=== PATIENT | female | born 1985 | race Caucasian/White ===

== ENCOUNTER 2018-06-08 09:54 | Emergency (ER) | payer MEDICAID, OTHER ==
[~2018-06-08] VITALS: Ht 167.6 cm; Wt 125.0 kg
[2018-06-08] MEDS ORDERED: LAMO10TA PO ×2 (10:01→13:38)
[2018-06-08] MEDS ORDERED: BOTO10VL IM (10:01)
[2018-06-08] MEDS ORDERED: GABA-845 PO (10:01)
[2018-06-08] MEDS ORDERED: KETO10TAB PO ×2 (10:02→13:38)
[2018-06-08 10:23] LABS: BASO % 0.3 % (0.0-1.0); EOS # 0.2 10^3/uL (0.0-0.50); HEMATOCRIT 44.6 % (36.0-47.0); HEMOGLOBIN 14.8 g/dl (12.0-15.5); LYMPH # 2.7 10^3/uL (1.5-4.5); LYMPH % 25.8 % (24.0-44.0); MEAN CORPUSCULAR HEMOGLOBIN 29.6 pg (27.0-33.0); MEAN CORPUSCULAR HGB CONC 33.2 g/dl (32.0-36.5); MEAN CORPUSCULAR VOLUME 89.2 fl (80.0-96.0); MONO # 0.6 10^3/uL (0.0-0.8); MONO % 5.4 % (0.0-5.0); NEUTROPHILS # 6.9 10^3/uL (1.8-7.7); NEUTROPHILS % 66.1 % (36.0-66.0); PLATELET COUNT, AUTOMATED 323 10^3/uL (150-450); WHITE BLOOD COUNT 10.4 10^3/uL (4.0-10.0)
[2018-06-08] MEDS ORDERED: NS 1,000 ML IV ONE (10:45)
[2018-06-08] MEDS ORDERED: KETOROLAC 30 MG/ML VIAL (J1885) IV ONE (10:45)
[2018-06-08] MEDS ORDERED: ONDANSETRON 4MG/2ML VIAL (J2405) IV ONE (10:45)
[2018-06-08 11:01] LABS: ALBUMIN 3.8 GM/DL (3.2-5.2); ALT/SGPT 22 U/L (12-78); AMYLASE 44 U/L (25-115); BILIRUBIN,DIRECT < 0.1 MG/DL (0.0-0.2); BILIRUBIN,TOTAL 0.5 MG/DL (0.2-1.0); BLOOD UREA NITROGEN 17 MG/DL (7-18); CARBON DIOXIDE LEVEL 22 MEQ/L (21-32); CHLORIDE LEVEL 105 MEQ/L (98-107); CREATININE FOR GFR 0.63 MG/DL (0.55-1.30); GLOMERULAR FILTRATION RATE > 60.0 (>60); GLUCOSE, FASTING 89 MG/DL (70-100); LIPASE 195 U/L (73-393); POTASSIUM SERUM 4.8 MEQ/L (3.5-5.1); SODIUM LEVEL 139 MEQ/L (136-145); TOTAL PROTEIN 7.8 GM/DL (6.4-8.2)
[2018-06-08 11:08] LABS: HCG, SERUM QUALITATIVE NEGATIVE (NEGATIVE)
[2018-06-08] MEDS ORDERED: ISOVUE-370 76% 100ML VIAL (Q9967) As Ordered ONE (12:15)
[2018-06-08] MEDS ORDERED: MORPHINE 4 MG/ML 1ML VIAL/SYRINGE (J2270) IV ONE (13:00)
[2018-06-08] MEDS ORDERED: GABA-843 PO (13:38)
[2018-06-08] MEDS ORDERED: MIRA3350 PO (13:39)
[2018-06-08] MEDS ORDERED: ACETAMINOPHEN 325 MG TAB PO ONE (13:45)
[2018-06-08] MEDS ORDERED: lamoTRIgine 100MG TAB PO ONE (13:45)
--- NOTE | 2018-06-08 13:45 | REP ---
CT abdomen pelvis with IV but without oral contrast: Tree: Right lower quadrant pain. Leukocytosis. Comparison CT study is from March 13, 2007. CT findings: Preliminary digital avian keeper radiograph is unremarkable. There are clips in the gallbladder fossa. The lung bases are clear on axial CT images. The liver and the spleen are normal in size homogeneous in texture. No adrenal or pancreatic lesion is seen. The kidneys enhance symmetrically and are morphologically intact. A normal appendix is visible in the right lower quadrant. No abdominal wall defect is seen. No uterine or ovarian abnormality is seen. Urinary bladder is intact. Bone window settings show no significant bony abnormality. Small and large intestinal bowel loops are unremarkable. Impression: Unremarkable CT study of the abdomen and pelvis. The patient status post cholecystectomy. Normal appendix is seen. Electronically Signed by Taras Silva MD 06/08/2018 08:13 P
[2018-06-08 14:08] VITALS: BP 118/72
== END 2018-06-08 14:23 | disposition home or self-care (01) ==
LOC: M ED 09:54
DX: R10.31 Right lower quadrant pain (principal); G43.909 Migraine, unspecified, not intractable, without status migrainosus; K59.00 Constipation, unspecified
CPT/HCPCS: 36415; 74177; 80048; 80076; 81001; 82150; 83690; 84703; 85025; 96361; 96374; 96375; 99284; J1885; J2270; J2405; Q9967

== ENCOUNTER 2018-06-28 09:08 | Emergency (ER) | payer MEDICAID ==
[~2018-06-28] VITALS: Ht 167.6 cm; Wt 122.7 kg
[~2018-06-28 09:08] MED LIST: BOTO10VL IM; GABA-843 PO; GABA-845 PO; KETO10TAB PO; LAMO10TA PO; MIRA3350 PO
[2018-06-28] MEDS ORDERED: KETOROLAC 60 MG/2 ML VIAL (J1885) IM ONE (09:30)
[2018-06-28] MEDS ORDERED: ONDANSETRON 4 MG ORAL DISINTEGRATING TAB (Q0162 PER 1MG) PO ONE (09:30)
[2018-06-28 10:18] LABS: APPEARANCE, URINE CLEAR (CLEAR); BACTERIA, URINE AUTO NEGATIVE (NEGATIVE); BILIRUBIN, URINE AUTO NEGATIVE (NEGATIVE); BLOOD, URINE BLOOD 1+ (NEGATIVE); COLOR, URINE YELLOW (YELLOW); GLUCOSE, URINE (UA) AUTO NEGATIVE (NEGATIVE); KETONE, URINE AUTO NEGATIVE (NEGATIVE); LEUKOCYTE ESTERASE, URINE AUTO NEGATIVE (NEGATIVE); MUCUS, URINE SMALL (NEGATIVE); NITRITE, URINE AUTO NEGATIVE (NEGATIVE); PROTEIN, URINE AUTO NEGATIVE (NEGATIVE); RBC, URINE AUTO 2 /HPF (0-3); SPECIFIC GRAVITY URINE AUTO 1.026 (1.002-1.035); SQUAMOUS EPITHELIAL CELL UR AU 3 /HPF (0-6); UROBILINOGEN, URINE AUTO 0.2 mg/dL (0.0-2.0); WBC, URINE AUTO 2 /HPF (0-3)
--- NOTE | 2018-06-28 10:36 | REP ---
Clinical: Right lower quadrant pain. Technique: Transabdominal pelvic ultrasound followed by transvaginal examination for better evaluation of the endometrium and adnexa with color Doppler evaluation of the ovaries. Findings: Anteverted mildly enlarged uterus measures 10.0 x 5.5 x 6.8 cm. Endometrial complex measures 9.3 mm thickness. No discrete uterine or endometrial abnormalities appreciated. The bilateral ovaries are normal in appearance and vascularity without evidence for torsion. Right ovary measures 1.9 x 1.6 x 1.4 cm; RI 0.50. Left ovary measures 2.3 x 1.9 x 2.8 cm; RI 0.51. No pelvic free fluid or adnexal mass lesion. Bladder is partially distended and currently measures 4.4 x 1.5 x 3.7 cm. Impression: No obvious acute pelvic pathology. No evidence for ovarian torsion. No free fluid. Electronically Signed by Lauri Fraser MD 06/28/2018 10:27 A
[2018-06-28] MEDS ORDERED: ACETAMINOPHEN 325 MG TAB PO ONE (10:45)
[2018-06-28] MEDS ORDERED: PERCOCET 5MG/325MG TAB PO ONE (11:30)
[2018-06-28 11:37] LABS: CHLAMYDIA DNA AMPLIFICATION NEGATIVE (NEGATIVE); GC DNA AMPLIFICATION NEGATIVE (NEGATIVE)
[2018-06-28] MEDS ORDERED: oxyCODONE 5MG TAB PO ONE (11:45)
[2018-06-28] MEDS ORDERED: ENDO10TA8 PO (12:33)
[2018-06-28] MEDS ORDERED: IBUP80TA PO (12:33)
[2018-06-28 12:34] VITALS: BP 137/65
[2018-07-02] MEDS ORDERED: ACET30TAB PO (09:48)
[2018-07-08] MEDS ORDERED: OXYC1TAB23 PO (13:16)
[2018-07-09] MEDS ORDERED: PERCOCET PO (09:10)
== END 2018-06-28 12:40 | disposition home or self-care (01) ==
LOC: M ED 09:08
DX: R10.31 Right lower quadrant pain (principal); R51 Headache; F41.9 Anxiety disorder, unspecified; Z72.0 Tobacco use; J30.1 Allergic rhinitis due to pollen; J30.81 Allergic rhinitis due to animal (cat) (dog) hair and dander; Z79.899 Other long term (current) drug therapy; Z88.0 Allergy status to penicillin
CPT/HCPCS: 76830; 76856; 81001; 81025; 87210; 87491; 87591; 93976; 96372; 99284; J1885; Q0162

== ENCOUNTER 2018-07-19 13:31 | Emergency (ER) | payer MEDICAID ==
[~2018-07-19] VITALS: Ht 167.6 cm; Wt 113.6 kg
[~2018-07-19 13:31] MED LIST changes: +ACET30TAB PO; +ENDO10TA8 PO; +IBUP80TA PO; +OXYC1TAB23 PO; +PERCOCET PO
--- NOTE | 2018-07-19 14:11 | REP ---
CT of the brain without IV contrast: Comparison is 04/13/2015. There is no subdural or epidural hematoma. There is no intracranial hemorrhage otherwise. There is no edema, mass effect or midline shift. The ventricles are normal size and midline. The cortical stripe is unremarkable. The visualized paranasal sinuses and mastoid air cells are clear. Impression: Negative CT study of the brain. There is no interval change. Electronically Signed by Antonio Mcallister MD 07/19/2018 02:03 P
--- NOTE | 2018-07-19 14:13 | REP ---
Right shoulder three views: There are no comparisons. Mineralization is normal. There is an unusual horizontal linear density in the surgical neck of the humerus on one-view. This is nonspecific but could represent a cortical fracture. Correlation with clinical point tenderness is recommended. Consider CT for confirmation. No other fracture is identified. There is no dislocation. There are no calcifications or foreign bodies. Impression: Questionable cortical fracture as described. Consider CT follow-up. Electronically Signed by Antonio Mcallister MD 07/19/2018 02:05 P
--- NOTE | 2018-07-19 14:18 | REP ---
Maxillofacial CT: There is no nasal bone fracture. There is no orbit fracture. The ocular globes and lenses are unremarkable. There is no zygoma fracture. No mandible fracture. The paranasal sinuses and mastoid air cells are clear. 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 Impression: No facial bone fracture is identified. Electronically Signed by Antonio Mcallister MD 07/19/2018 02:11 P
[2018-07-19] MEDS ORDERED: NORCO, ANEXSIA 5/325MG TABLET (HYDROcodone/ACETAMINOPHEN) PO ONE (14:45)
--- NOTE | 2018-07-19 14:51 | REP ---
CT of the right shoulder without IV contrast: Comparison is a plain film study earlier today. There is no femoral head or neck fracture by CT. The finding on the plain film study is likely artifact. Mineralization is normal. No calcifications. The glenohumeral and acromioclavicular joints are unremarkable. Impression: Negative CT of the right shoulder. There is no fracture or dislocation. Electronically Signed by Antonio Mcallister MD 07/19/2018 02:42 P
[2018-07-19 15:10] VITALS: BP 136/76
[2018-07-29] MEDS ORDERED: PERCOCET PO (09:39)
== END 2018-07-19 15:20 | disposition home or self-care (01) ==
LOC: M ED 13:31
DX: S09.90XA Unspecified injury of head, initial encounter (principal); S49.91XA Unspecified injury of right shoulder and upper arm, initial encounter; Y04.8XXA Assault by other bodily force, initial encounter; Y07.01 Husband, perpetrator of maltreatment and neglect; Y92.018 Other place in single-family (private) house as the place of occurrence of the external cause; F33.9 Major depressive disorder, recurrent, unspecified; F41.9 Anxiety disorder, unspecified; Z88.0 Allergy status to penicillin; J30.81 Allergic rhinitis due to animal (cat) (dog) hair and dander; Z79.899 Other long term (current) drug therapy; F17.210 Nicotine dependence, cigarettes, uncomplicated

== ENCOUNTER → 2018-07-21 | Outpatient (CLI) | payer MEDICAID ==
[~2018-07-21] MED LIST changes: +IBUP1TAB7 PO
== END ==
LOC: M SMT 09:38
PROVIDERS: ATTEND Obstetrics & Gynecology
DX: Z80.3 Family history of malignant neoplasm of breast (principal); Z80.41 Family history of malignant neoplasm of ovary

== ENCOUNTER 2018-07-22 08:04 | Day surgery (SDC) | payer MEDICAID ==
[~2018-07-22] VITALS: Ht 167.6 cm; Wt 133.8 kg
[~2018-07-22 08:04] MED LIST changes: -IBUP1TAB7 PO; +LIDOCAINE 1% MDV 20ML VIAL SQ PRN
[2018-07-22] MEDS ORDERED: ONDANSETRON 4MG/2ML VIAL (J2405) As Ordered ONE (08:09)
[2018-07-22] MEDS ORDERED: ROCURONIUM BROMIDE 50 MG/5 ML VIAL As Ordered ONE (08:09)
[2018-07-22] MEDS ORDERED: PROPOFOL 200 MG/20 ML VIAL As Ordered ONE (08:09)
[2018-07-22] MEDS ORDERED: dexameTHASONE 4 MG/ML 1ML VIAL (J1100) As Ordered ONE (08:09)
[2018-07-22] MEDS ORDERED: LIDOCAINE 2% INJ 100 MG/5 ML SDV (FOR ANES.) As Ordered ONE (08:09)
[2018-07-22] MEDS ORDERED: fentaNYL 250 MCG/5 ML INJECTION (J3010) As Ordered ONE (08:10)
[2018-07-22] MEDS ORDERED: MIDAZOLAM INJ 2 MG/2 ML VIAL (J2250) As Ordered ONE (08:11)
[2018-07-22 08:33] LABS: HEMATOCRIT 44.6 % (36.0-47.0); HEMOGLOBIN 14.6 g/dl (12.0-15.5); MEAN CORPUSCULAR HEMOGLOBIN 29.4 pg (27.0-33.0); MEAN CORPUSCULAR HGB CONC 32.7 g/dl (32.0-36.5); MEAN CORPUSCULAR VOLUME 89.7 fl (80.0-96.0); PLATELET COUNT, AUTOMATED 297 10^3/uL (150-450); RED BLOOD COUNT 4.97 10^6/uL (4.00-5.40); WHITE BLOOD COUNT 12.7 10^3/uL (4.0-10.0)
[2018-07-22] MEDS ORDERED: PERCOCET PO (08:45)
[2018-07-22] MEDS ORDERED: IBUP1TAB7 PO (08:47)
[2018-07-22] MEDS ORDERED: BUPIVACAINE HCL 0.25% 30 ML VIAL As Ordered ONE (08:51)
[2018-07-22 09:01] LABS: HCG, SERUM QUALITATIVE NEGATIVE (NEGATIVE)
[2018-07-22] MEDS ORDERED: METOCLOPRAMIDE INJ 10MG/2ML VIAL (J2765) As Ordered ONE (09:26)
[2018-07-22] MEDS ORDERED: HYDROmorphone HCL 2 MG/ML 1ML VIAL (J1170) As Ordered ONE (09:45)
[2018-07-22] MEDS ORDERED: GLYCOPYRROLATE INJ 0.2 MG/ML 2 ML VIAL As Ordered ONE (09:45)
[2018-07-22] MEDS ORDERED: KETOROLAC 60 MG/2 ML VIAL (J1885) As Ordered ONE (09:45)
[2018-07-22] MEDS ORDERED: NEOSTIGMINE 10 MG/10 ML VIAL (J2710) As Ordered ONE (09:45)
[2018-07-22] MEDS ORDERED: ONDANSETRON 4MG/2ML VIAL (J2405) IV PRN (10:45)
[2018-07-22] MEDS ORDERED: PERCOCET 5MG/325MG TAB PO PRN (10:45)
[2018-07-22] MEDS ORDERED: LR 1,000 ML IV ONE (10:45)
[2018-07-22] MEDS ORDERED: fentaNYL 100 MCG/2 ML INJECTION (J3010) IV PRN (10:45)
[2018-07-22] MEDS ORDERED: LR 1,000 ML IV SCH (10:45)
[2018-07-22] MEDS ORDERED: NORCO, ANEXSIA 5/325MG TABLET (HYDROcodone/ACETAMINOPHEN) As Ordered ONE (10:48)
[2018-07-22] MEDS ORDERED: NORCO, ANEXSIA 5/325MG TABLET (HYDROcodone/ACETAMINOPHEN) PO PRN (11:15)
--- NOTE | 2018-07-22 11:41 | RO ---
DATE OF PROCEDURE: 07/22/2018 PREOPERATIVE DIAGNOSES: 1. Ovarian cysts. 2. Chronic pelvic pain. POSTOPERATIVE DIAGNOSES: 1. Chronic pelvic pain. 2. Endometriosis. OPERATION PERFORMED: Diagnostic operative laparoscopy with left salpingo-oophorectomy. SURGEON: Ela Cook MD PHYSICIAN SPECIALIST: Kashmir Ernandez DO ANESTHESIA: General endotracheal anesthesia. ESTIMATED BLOOD LOSS: 5 mL. INTRAVENOUS FLUIDS: 900 mL of Lactated Ringer's solution. URINE OUTPUT: 300 mL. PREOPERATIVE ANTIBIOTICS: None. INFECTION CLASSIFICATION: 1 OPERATIVE FINDINGS: Patient had normal appearing ovaries bilaterally. Normal appearing uterus. Area of endometriosis on the pelvic sidewall. Secondary to its location proximal to the left ureter, a decision was made not to remove it. SPECIMENS: Left ovary and fallopian tube. DESCRIPTION OF OPERATION: After informed consent was obtained and written consent was reviewed, the patient as brought to the operating room where general endotracheal anesthesia was obtained. She was then placed in lithotomy position, was prepped and draped in a normal sterile fashion. A time out in the operating room was then performed identifying the patient, procedure to be performed as well as drug allergies. A bivalve speculum was then placed revealing the cervix. Anterior lip of the cervix was grasped with a single tooth tenaculum. The uter was then sounded to 8 cm. A Hulka tenaculum was then advanced through the cervical os for a means to manipulate the uterus. Single tooth tenaculum and speculum was then removed. Wright catheter was then placed and set to gravity. Gloves were changed and attention was turned to the patient's abdomen where 0.25% Marcaine was infused into the umbilical region. This areas was then incised and an 11 mm trocar and sleeve was advanced through this incision. The laparoscope was then replaced revealing intra-abdominal placement. A pneumoperitoneum was then obtained with CO2 gas. The abdomen was then surveyed with the above noted findings. Two additional port sites were placed on each side of the umbilicus. These incisions were infused with 0.25% Marcaine and the incision was made in each one of these areas and 5 mm trocar and sleeve was advanced through each one of these incisions under direct visualization. Next, the left fallopian tube was placed on traction. Using the Harmonic MARGO scalpel device, the infundibulopelvic ligament was then cauterized and ligated. Further dissection was made along the mesosalpinx and included the fallopian tube, and the fallopian tube along with the utero-ovarian ligament was cauterized and ligated with hemostasis noted. The specimen was then placed in the Endo Catch bag and this was removed through the port site. Surgical sites were inspected and noted to be hemostatic. The pneumoperitoneum was then released. Trocars were removed as well as instruments. The fascia of the umbilical port site was closed with #0 Vicryl. All three incisions were closed with #4-0 Monocryl and dressed with DERMABOND. The Hulka tenaculum was removed. The tenaculum sites were noted to be hemostatic. Wright catheter was removed and the patient was then taken out of lithotomy position, was awakened from general anesthesia and taken to the recovery room in stable condition. Counts were correct. Dr. Ernandez, my surgical training specialist, played an essential role during the operation. He assisted with port placement, tissue identification and retraction, removal of the specimen as well as wound closure.
[2018-07-22 12:00] VITALS: BP 128/73
--- NOTE | 2018-07-22 12:37 | RO ---
DATE OF OPERATION: 07/22/2018 PREOPERATIVE DIAGNOSIS: Chronic pelvic pain. POSTOPERATIVE DIAGNOSIS: Chronic pelvic pain. PROCEDURE PERFORMED: Diagnostic operative laparoscopy with a right oophorectomy. SURGEON: Ela Cook MD TALENT DEVELOPMENT CONSULTANT: Ramsey Mcwilliams MD ANESTHESIA: General endotracheal anesthesia. ESTIMATED BLOOD LOSS: 5 mL. INTRAVENOUS FLUIDS: 900 mL of lactated Ringer solution. URINE OUTPUT: 300 mL. PREOPERATIVE ANTIBIOTICS: None. INFECTION CLASSIFICATION: #1. SPECIMEN: Right ovary. OPERATIVE FINDINGS: The patient with adhered right ovary. There was a left ovarian cyst which was drained operatively. DESCRIPTION OF OPERATION: After informed consent was obtained and written consent was reviewed, the patient was brought to the operating room, where general endotracheal anesthesia was obtained. She was then placed in the lithotomy position and was prepped and draped in a normal sterile fashion. A time-out in the operating room was then performed identifying the patient, the procedure to be performed, as well as drug allergies. A bivalved speculum was placed, revealing the cervix. The anterior lip of the cervix was grasped with a single-tooth tenaculum. The uterus was then sounded to 8 cm. A Hulka tenaculum was then advanced through the cervical os for a means to manipulate the uterus. The speculum and single-tooth tenaculum were then removed. A Wright catheter was then placed and set to gravity. Gloves were changed. Attention was turned to the patient's abdomen, where 0.25% Marcaine was infused in umbilical region. This area was incised, and an 11-mm trocar and sleeve was advanced through this incision. The laparoscope was then replaced, revealing intra-abdominal placement. The pelvis and abdomen were then surveyed with the above-noted findings. Next, two additional ports sites were placed in each side of the umbilicus. These areas were infused with 0.25% Marcaine. 5-mm trocars and sleeves were advanced through each one of these incisions under direct visualization. Next, a right infundibulopelvic ligament was then cauterized and ligated using harmonic scalpel device. The right ovary was peeled off of the right pelvic sidewall using Harmonic John scalpel device and along with some blunt dissection. This was performed with identification of the right ureter, making sure that I was well away from the right ureter. The utero-ovarian ligament was then cauterized and ligated using the Harmonic John scalpel device. The specimen was then placed in an Endo Catch bag and was removed from the umbilical port site. Surgical sites were noted to be hemostatic. The right ovarian cyst was drained. The surgical sites were hemostatic. The abdomen was then suctioned. The instruments were then removed from the patient's abdomen. The pneumoperitoneum was then released. The fascia at the port site was closed with 0 Vicryl and the skin of all three port sites were closed with 4-0 Monocryl and were dressed with Dermabond. Prior to removing the patient from the lithotomy position, Hulka tenaculum was removed. The tenaculum site was noted to be hemostatic. Wright catheter was removed. The patient was then taken out of the lithotomy position, was awakened from general anesthesia, and taken to recovery in stable condition. Counts were correct. Dr. Mcwilliams, my surgical nurse practitioner, played an essential role during the surgery. He assisted with port placement, tissue identification and retraction, the right oophorectomy, as well as removal of specimen and wound closure.
[2018-07-22] MEDS ORDERED: KETOROLAC 30 MG/ML VIAL (J1885) IV SCH (16:00)
[2018-07-29] MEDS ORDERED: PERCOCET PO (09:39)
== END 2018-07-22 12:05 | disposition home or self-care (01) ==
LOC: M SDC 08:04
PROVIDERS: ATTEND Obstetrics & Gynecology
DX: R10.2 Pelvic and perineal pain (principal); N83.202 Unspecified ovarian cyst, left side; G43.909 Migraine, unspecified, not intractable, without status migrainosus; D64.9 Anemia, unspecified; F41.9 Anxiety disorder, unspecified; F32.9 Major depressive disorder, single episode, unspecified; R06.83 Snoring; F12.90 Cannabis use, unspecified, uncomplicated; E66.9 Obesity, unspecified; Z68.42 Body mass index [BMI] 45.0-49.9, adult; Z88.0 Allergy status to penicillin; Z88.1 Allergy status to other antibiotic agents; Z91.09 Other allergy status, other than to drugs and biological substances; Z79.899 Other long term (current) drug therapy; Z72.0 Tobacco use
CPT/HCPCS: 36415; 49322; 58661; 84703; 85027; 86850; 86900; 86901; 88305; J1100; J1170; J1885; J2250; J2405; J2710; J2765; J3010

== ENCOUNTER 2018-07-28 08:00 | Emergency (ER) | payer MEDICAID, OTHER ==
[~2018-07-28] VITALS: Ht 167.6 cm; Wt 125.0 kg
[~2018-07-28 08:00] MED LIST changes: +IBUP1TAB7 PO; -LIDOCAINE 1% MDV 20ML VIAL SQ PRN
[2018-07-28 08:57] LABS: BASO % 0.3 % (0.0-1.0); EOS # 0.2 10^3/uL (0.0-0.50); EOS % 2.2 % (0.0-3.0); HEMATOCRIT 42.5 % (36.0-47.0); HEMOGLOBIN 14.1 g/dl (12.0-15.5); LYMPH # 2.4 10^3/uL (1.5-4.5); LYMPH % 23.8 % (24.0-44.0); MEAN CORPUSCULAR HEMOGLOBIN 29.5 pg (27.0-33.0); MEAN CORPUSCULAR HGB CONC 33.2 g/dl (32.0-36.5); MEAN CORPUSCULAR VOLUME 88.9 fl (80.0-96.0); MONO # 0.7 10^3/uL (0.0-0.8); MONO % 7.2 % (0.0-5.0); NEUTROPHILS # 6.7 10^3/uL (1.8-7.7); NEUTROPHILS % 66.1 % (36.0-66.0); PLATELET COUNT, AUTOMATED 300 10^3/uL (150-450); RED BLOOD COUNT 4.78 10^6/uL (4.00-5.40); WHITE BLOOD COUNT 10.1 10^3/uL (4.0-10.0)
[2018-07-28] MEDS ORDERED: MORPHINE 2 MG/ML 1ML SYRINGE (J2270) IV ONE (09:15)
[2018-07-28] MEDS ORDERED: NS 1,000 ML IV ONE (09:15)
--- NOTE | 2018-07-28 09:59 | REP ---
PELVIC ULTRASOUND: Real-time sonographic evaluation of the pelvis performed utilizing transabdominal and endovaginal technique. Bladder measures 4.3 x 3.8 cm. Uterus measures 10.9 x 5.4 x 4.9 cm. Endometrial thickness is 10 mm with no endometrial fluid collection. Patient has had a right oophorectomy approximately 6 days ago. Left ovary is normal in size and echotexture, measuring 2.7 x 1.9 x 2.5 cm, with no torsion, resistive index 0.58. There is no adnexal mass or free fluid. Nabothian cysts are seen in the region of the cervix. IMPRESSION: No endometrial fluid collection or free fluid. No left ovary torsion. Electronically Signed by Antonio Rdz MD 07/29/2018 09:06 A
[2018-07-28 11:10] LABS: ALBUMIN 3.7 GM/DL (3.2-5.2); ALT/SGPT 28 U/L (12-78); BILIRUBIN,DIRECT 0.1 MG/DL (0.0-0.2); BILIRUBIN,TOTAL 0.4 MG/DL (0.2-1.0); BLOOD UREA NITROGEN 14 MG/DL (7-18); CALCIUM LEVEL 8.8 MG/DL (8.5-10.1); CARBON DIOXIDE LEVEL 23 MEQ/L (21-32); CHLORIDE LEVEL 106 MEQ/L (98-107); CREATININE FOR GFR 0.66 MG/DL (0.55-1.30); GLOMERULAR FILTRATION RATE > 60.0 (>60); GLUCOSE, FASTING 99 MG/DL (70-100); LIPASE 201 U/L (73-393); POTASSIUM SERUM 4.5 MEQ/L (3.5-5.1); SODIUM LEVEL 139 MEQ/L (136-145); TOTAL PROTEIN 7.2 GM/DL (6.4-8.2)
[2018-07-28 11:15] LABS: HCG, SERUM QUALITATIVE NEGATIVE (NEGATIVE)
[2018-07-28 11:24] VITALS: BP 126/75
[2018-07-29] MEDS ORDERED: PERCOCET PO (09:39)
== END 2018-07-28 11:25 | disposition home or self-care (01) ==
LOC: M ED 08:00
DX: N93.9 Abnormal uterine and vaginal bleeding, unspecified (principal); R51 Headache; F41.9 Anxiety disorder, unspecified; F32.9 Major depressive disorder, single episode, unspecified; J30.2 Other seasonal allergic rhinitis; J30.81 Allergic rhinitis due to animal (cat) (dog) hair and dander; Z72.0 Tobacco use; Z90.721 Acquired absence of ovaries, unilateral; Z79.899 Other long term (current) drug therapy; Z88.0 Allergy status to penicillin
CPT/HCPCS: 76830; 76856; 80048; 80076; 81001; 83690; 84703; 85025; 93976; 96374; 99284; J2270

== ENCOUNTER → 2018-08-24 | Outpatient (REF) | payer OTHER | LOC: M SFHCPLAZ 12:46 | PROVIDERS: ATTEND Family Medicine | DX: Z68.41 Body mass index [BMI] 40.0-44.9, adult (principal); R53.83 Other fatigue ==

== ENCOUNTER → 2018-08-24 | Outpatient (CLI) | payer OTHER ==
[~2018-08-24] MED LIST changes: +ACET-716 PO; -ACET30TAB PO; +LAMO100T80 PO; -LAMO10TA PO
== END ==
LOC: M LRY 18:37
PROVIDERS: ATTEND Student in an Organized Health Care Education/Training Program
DX: R53.83 Other fatigue (principal); Z68.41 Body mass index [BMI] 40.0-44.9, adult

== ENCOUNTER 2018-09-08 15:34 | Emergency (ER) | payer OTHER ==
[~2018-09-08] VITALS: Ht 167.6 cm; Wt 136.4 kg
[2018-09-08] MEDS ORDERED: ONDANSETRON 4MG/2ML VIAL (J2405) IV ONE (16:15)
[2018-09-08] MEDS ORDERED: NS 1,000 ML IV ONE (16:15)
[2018-09-08] MEDS ORDERED: PANTOPRAZOLE 40MG INJ (PROTONIX) (C9113) IV ONE (16:15)
[2018-09-08 17:00] LABS: BASO % 0.3 % (0.0-1.0); EOS # 0.1 10^3/uL (0.0-0.50); EOS % 0.9 % (0.0-3.0); HEMATOCRIT 46.5 % (36.0-47.0); HEMOGLOBIN 15.3 g/dl (12.0-15.5); LYMPH # 2.8 10^3/uL (1.5-4.5); LYMPH % 19.8 % (24.0-44.0); MEAN CORPUSCULAR HEMOGLOBIN 29.7 pg (27.0-33.0); MEAN CORPUSCULAR HGB CONC 32.9 g/dl (32.0-36.5); MEAN CORPUSCULAR VOLUME 90.3 fl (80.0-96.0); MONO # 0.8 10^3/uL (0.0-0.8); MONO % 5.3 % (0.0-5.0); NEUTROPHILS # 10.4 10^3/uL (1.8-7.7); NEUTROPHILS % 73.3 % (36.0-66.0); PLATELET COUNT, AUTOMATED 331 10^3/uL (150-450); RED BLOOD COUNT 5.15 10^6/uL (4.00-5.40); WHITE BLOOD COUNT 14.1 10^3/uL (4.0-10.0)
[2018-09-08 17:19] LABS: HCG, SERUM QUALITATIVE NEGATIVE (NEGATIVE)
[2018-09-08 17:27] LABS: ALBUMIN 4.2 GM/DL (3.2-5.2); ALT/SGPT 23 U/L (12-78); BILIRUBIN,DIRECT 0.2 MG/DL (0.0-0.2); BILIRUBIN,TOTAL 0.7 MG/DL (0.2-1.0); BLOOD UREA NITROGEN 12 MG/DL (7-18); CALCIUM LEVEL 9.4 MG/DL (8.5-10.1); CARBON DIOXIDE LEVEL 26 MEQ/L (21-32); CHLORIDE LEVEL 106 MEQ/L (98-107); CREATININE FOR GFR 0.62 MG/DL (0.55-1.30); GLOMERULAR FILTRATION RATE > 60.0 (>60); GLUCOSE, FASTING 85 MG/DL (70-100); LIPASE 212 U/L (73-393); POTASSIUM SERUM 3.9 MEQ/L (3.5-5.1); SODIUM LEVEL 138 MEQ/L (136-145); TOTAL PROTEIN 7.7 GM/DL (6.4-8.2)
[2018-09-08] MEDS ORDERED: ZOFR4TAB16 PO (18:33)
[2018-09-08 18:46] VITALS: BP 143/61
--- NOTE | 2018-09-08 19:11 | REP ---
ABDOMEN, FLAT AND UPRIGHT, PA CHEST, FOUR VIEWS: HISTORY: Abdominal pain. A small amount of air is present in the intestine. There are no air fluid levels or dilated loops of intestine. There is no pneumoperitoneum. The lungs are clear. IMPRESSION: Nonspecific bowel gas pattern. Electronically Signed by Ramsey Kurtz MD 09/08/2018 07:12 P
== END 2018-09-08 18:52 | disposition home or self-care (01) ==
LOC: M ED 15:34
DX: A08.4 Viral intestinal infection, unspecified (principal); R51 Headache; F17.210 Nicotine dependence, cigarettes, uncomplicated; Z88.0 Allergy status to penicillin; J30.81 Allergic rhinitis due to animal (cat) (dog) hair and dander; J30.1 Allergic rhinitis due to pollen; Z79.899 Other long term (current) drug therapy
CPT/HCPCS: 74021; 80048; 80076; 81001; 83690; 84703; 85025; 96374; 96375; 99284; C9113; J2405

== ENCOUNTER 2019-01-10 11:27 | Emergency (ER) | payer OTHER ==
[~2019-01-10] VITALS: Ht 167.6 cm; Wt 137.7 kg
[~2019-01-10 11:27] MED LIST changes: +ZOFR4TAB16 PO
[2019-01-10] MEDS ORDERED: NS 1,000 ML IV ONE (12:15)
[2019-01-10 12:40] LABS: BASO % 0.2 % (0.0-1.0); EOS # 0.2 10^3/uL (0.0-0.50); EOS % 1.7 % (0.0-3.0); HEMATOCRIT 42.3 % (36.0-47.0); LYMPH # 2.2 10^3/uL (1.5-4.5); LYMPH % 23.8 % (24.0-44.0); MEAN CORPUSCULAR HEMOGLOBIN 30.6 pg (27.0-33.0); MEAN CORPUSCULAR HGB CONC 33.1 g/dl (32.0-36.5); MEAN CORPUSCULAR VOLUME 92.4 fl (80.0-96.0); MONO # 0.6 10^3/uL (0.0-0.8); MONO % 6.4 % (0.0-5.0); NEUTROPHILS # 6.3 10^3/uL (1.8-7.7); NEUTROPHILS % 67.5 % (36.0-66.0); PLATELET COUNT, AUTOMATED 261 10^3/uL (150-450); RED BLOOD COUNT 4.58 10^6/uL (4.00-5.40); WHITE BLOOD COUNT 9.3 10^3/uL (4.0-10.0)
[2019-01-10 13:13] LABS: HCG, SERUM QUALITATIVE NEGATIVE (NEGATIVE)
[2019-01-10 13:42] LABS: BLOOD UREA NITROGEN 13 MG/DL (7-18); CALCIUM LEVEL 9.4 MG/DL (8.5-10.1); CARBON DIOXIDE LEVEL 29 MEQ/L (21-32); CHLORIDE LEVEL 107 MEQ/L (98-107); GLOMERULAR FILTRATION RATE > 60.0 (>60); GLUCOSE, FASTING 94 MG/DL (70-100); SODIUM LEVEL 140 MEQ/L (136-145)
[2019-01-10] MEDS ORDERED: ACETAMINOPHEN TAB 650MG DOSE (2X325MG) PO ONE (16:15)
[2019-01-10 16:37] VITALS: BP 113/57
[2019-01-10 18:08] LABS: CHLAMYDIA DNA AMPLIFICATION NEGATIVE (NEGATIVE); GC DNA AMPLIFICATION NEGATIVE (NEGATIVE)
--- NOTE | 2019-01-11 09:51 | REP ---
PELVIC AND ENDOVAGINAL PROBE ULTRASOUND: 01/10/2019. Comparison: 07/28/2018. Clinical history: Pelvic cramping and bleeding. HCG today equals 0. Findings: Transabdominal and endovaginal probes were utilized. Bladder measured 6.0 x 5.1 x 6.5 cm. Uterus anteverted. It measures 11.0 x 5.7 x 6.8 cm. On EV probe the central endometrial echogenic stripe is 5 mm and homogeneous. No fluid endometrial cavity or cervical canal. There are multiple Nabothian cysts, about 15 mm for the largest. Uterine myometrium is homogeneous in echotexture, contours smooth. The right ovary is surgically absent according to the patient. There is no mass or fluid in the right adnexa. The left ovary is 2.5 x 3.2 x 1.5 cm and shows Doppler tracing with resistive index of 0.57 and good flow. No torsion. No cyst or solid adnexal mass. Impression: 1. Uterus anteverted, somewhat enlarged but homogeneous in echotexture. 2. Endometrial stripe 5 mm and normal. 3. Right ovary absent. 4. Multiple Nabothian cysts in the cervix, the largest 15 mm. 5. Left ovary unremarkable. Normal color flow and Doppler. No mass or cyst. No pelvic free fluid. Electronically Signed by Lamonte Duffy MD 01/11/2019 09:53 A
== END 2019-01-10 16:44 | disposition home or self-care (01) ==
LOC: M ED 11:27
DX: N93.9 Abnormal uterine and vaginal bleeding, unspecified (principal); N88.8 Other specified noninflammatory disorders of cervix uteri; F33.9 Major depressive disorder, recurrent, unspecified; F41.9 Anxiety disorder, unspecified; G43.909 Migraine, unspecified, not intractable, without status migrainosus; Z88.0 Allergy status to penicillin; J30.89 Other allergic rhinitis

== ENCOUNTER → 2019-06-01 | Outpatient (REF) | payer OTHER ==
[2019-06-01 17:47] LABS: THYROID STIMULATING HORMONE 10.8 uIU/ML (0.358-3.740)
== END ==
LOC: M SFHCPLAZ 15:14
PROVIDERS: ATTEND Family Medicine
DX: L65.8 Other specified nonscarring hair loss (principal)

== ENCOUNTER → 2020-03-05 | Outpatient (CLI) | payer OTHER ==
[~2020-03-05] MED LIST changes: +BOTO100I IM; +LAMO100T3 PO; +LEVO150T7 PO; +RIZA10TA2 PO
== END ==
LOC: M LABSMTC 10:57
PROVIDERS: ATTEND Obstetrics & Gynecology
DX: Z01.812 Encounter for preprocedural laboratory examination (principal); Z20.828 Contact with and (suspected) exposure to other viral communicable diseases
CPT/HCPCS: C9803; U0003

== ENCOUNTER 2020-03-10 09:01 | Day surgery (SDC) | payer OTHER ==
[~2020-03-10] VITALS: Ht 167.6 cm; Wt 158.8 kg
[~2020-03-10 09:01] MED LIST changes: +LR 1,000 ML IV ONE; +NS 1,000 ML IV ONE
[2020-03-10] MEDS ORDERED: propofoL 200 MG/20 ML VIAL As Ordered ONE (09:31)
[2020-03-10] MEDS ORDERED: dexameTHASONE 4 MG/ML 1ML VIAL (J1100 PER 1MG) As Ordered ONE (09:31)
[2020-03-10] MEDS ORDERED: LIDOCAINE 2% 100MG/5ML SDV (FOR ANES.) As Ordered ONE (09:31)
[2020-03-10] MEDS ORDERED: KETOROLAC 60MG 2ML VIAL As Ordered ONE (09:31)
[2020-03-10] MEDS ORDERED: ONDANSETRON 4MG/2ML VIAL As Ordered ONE (09:31)
[2020-03-10] MEDS ORDERED: fentaNYL 100 MCG/2 ML INJECTION (J3010) As Ordered ONE ×2 (09:32→11:25)
[2020-03-10] MEDS ORDERED: MIDAZOLAM INJ 2MG/2ML VIAL (J2250 PER 1MG) As Ordered ONE (09:32)
[2020-03-10] MEDS ORDERED: ROCURONIUM BROMIDE 50 MG/5 ML VIAL As Ordered ONE (10:07)
[2020-03-10] MEDS ORDERED: SUGAMMADEX SODIUM 500 MG/5 ML VIAL (BRIDION) As Ordered ONE (10:07)
--- NOTE | 2020-03-10 10:07 | ROOPDOC ---
[facility] Report Of Operation Report of Operation DATE OF PROCEDURE: 03/10/20 PREOPERATIVE DIAGNOSES: 1. Endometrial polyp POSTOPERATIVE DIAGNOSES: 1. Endometrial polyp PROCEDURE PERFORMED: Hysteroscopy, myosure, dilation and curettage. SURGEON: Ela Cook MD GUEST EXPERIENCE REPRESENTATIVE: None. ANESTHESIA: General via laryngeal mask airway ESTIMATED BLOOD LOSS: 5ml IV FLUIDS: 900 mL of lactated Ringer's solution. URINE OUTPUT: Not obtained. PREOPERATIVE ANTIBIOTICS: None. OPERATIVE FINDINGS: Anterior wall endometrial polyp. Bilateral ostia was visualized. DESCRIPTION OF PROCEDURE: After informed consent was obtained written consent was reviewed, the patient brought to operating room where she was placed under general anesthesia. She was then placed in lithotomy position and was prepped and draped in normal sterile fashion. Time-out in the operating room was then performed identifying the patient, procedure be performed as well as drug allergies. Grainfield speculum was placed revealing the cervix. Anterior lip of the cervix grasped with a single-tooth tenaculum. The uterus then sounded to 10.5 cm. The cervix then sequentially dilated using Hanks dilators. Hysteroscope was then advanced through the cervical os and endometrial cavity was observed with the above-noted findings. Myosure was then advanced. Endometrial polyp was morcellated. Myosure device was removed. Hysteroscope was then removed. Sharp curette was then advanced through the cervical os to the level of the fundus and the uterus curetted in a 360 degree fashion. Tissue was obtained and this was sent to pathology for evaluation. The single-tooth tenaculum was then removed. Tenaculum sites were noted be hemostatic. The speculum was then removed. The patient was then taken out of lithotomy position, was awakened from general anesthesia and taken recovery in stable condition. ELA COOK MD. Mar 10, 2020 10:07
[2020-03-10 10:18] LABS: HEMOGLOBIN 13.7 g/dl (12.0-15.5); MEAN CORPUSCULAR HEMOGLOBIN 28.9 pg (27.0-33.0); MEAN CORPUSCULAR HGB CONC 32.6 g/dl (32.0-36.5); MEAN CORPUSCULAR VOLUME 88.6 fl (80.0-96.0); PLATELET COUNT, AUTOMATED 295 10^3/uL (150-450); RED BLOOD COUNT 4.74 10^6/uL (4.00-5.40); WHITE BLOOD COUNT 8.5 10^3/uL (4.0-10.0)
[2020-03-10] MEDS ORDERED: LR 1,000 ML IV SCH (11:15)
[2020-03-10] MEDS ORDERED: oxyCODONE 5MG TAB PO PRN (11:15)
[2020-03-10] MEDS ORDERED: ONDANSETRON 4MG/2ML VIAL IV PRN (11:15)
[2020-03-10] MEDS ORDERED: MEPERIDINE INJ 25 MG/ML VIAL (J2175) IV PRN (11:15)
[2020-03-10] MEDS ORDERED: METOCLOPRAMIDE INJ 10MG/2ML VIAL (J2765 PER 1) IV PRN (11:15)
[2020-03-10] MEDS: fentaNYL 100 MCG/2 ML INJECTION (J3010) IV PRN ×7 (11:27→12:32)
[2020-03-10] MEDS ORDERED: PERCOCET 5MG/325MG TAB PO PRN (11:30)
[2020-03-10] MEDS ORDERED: METOCLOPRAMIDE INJ 10MG/2ML VIAL (J2765 PER 1) As Ordered ONE (12:27)
[2020-03-10 13:08] VITALS: BP 107/57
[2020-03-10] MEDS ORDERED: KETOROLAC 30 MG/ML 1ML VIAL IV SCH (17:00)
== END 2020-03-10 13:35 | disposition home or self-care (01) ==
LOC: M SDC 09:01
PROVIDERS: ATTEND Obstetrics & Gynecology
DX: N84.0 Polyp of corpus uteri (principal); E03.9 Hypothyroidism, unspecified; R73.09 Other abnormal glucose; G47.30 Sleep apnea, unspecified; D64.9 Anemia, unspecified; F17.218 Nicotine dependence, cigarettes, with other nicotine-induced disorders; F32.9 Major depressive disorder, single episode, unspecified; F31.9 Bipolar disorder, unspecified; F41.9 Anxiety disorder, unspecified
CPT/HCPCS: 36415; 58558; 81025; 85027; 86850; 86900; 86901; 88305; J1100; J1885; J2250; J2405; J2765; J3010

== ENCOUNTER → 2020-08-24 | Outpatient (CLI) | payer OTHER ==
[~2020-08-24] MED LIST changes: +GABA-282 PO; -GABA-843 PO; -LR 1,000 ML IV ONE; -NS 1,000 ML IV ONE
--- NOTE | 2020-08-24 19:16 | REP ---
INDICATION: SEMAJ KNEE PAIN. COMPARISON: None. TECHNIQUE: Multiple sequences obtained in the axial, coronal and sagittal planes. FINDINGS: Left: Menisci: Intact, no tear. Cruciate ligaments: Intact. There is very mild mucoid degeneration centrally in the anterior cruciate ligament. Collateral ligaments: Intact. Extensor mechanism/patellar retinacula: Intact. Cartilage: There is moderate chondromalacia of the lateral patellar facet, with otherwise mild global chondromalacia. Bone marrow: There is minimal subchondral marrow edema in the lateral patellar facet. No other abnormal bone marrow signal is seen. Joint fluid: There is a small joint effusion. Popliteal region: No cyst. Right: Menisci: Intact, no tear. Cruciate ligaments: Intact. Collateral ligaments: Intact. Extensor mechanism/patellar retinacula: Intact. Cartilage: There is moderate chondromalacia of the lateral patellar facet and medial femoral condyle diffusely. There is otherwise mild global chondromalacia. Bone marrow: Normal signal, no edema or occult fracture. Joint fluid: There is a small joint effusion. Popliteal region: No cyst. IMPRESSION: Left knee: No evidence of internal derangement. There is very mild mucoid degeneration centrally in the anterior cruciate ligament. 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 Otherwise mild global chondromalacia. Small joint effusion. Right knee: No evidence of internal derangement. There is moderate chondromalacia of the lateral patellar facet and medial femoral condyle diffusely. There is otherwise mild global chondromalacia. Small joint effusion. <Electronically signed by Antonio Rdz > 08/24/201911
== END ==
LOC: M RAD 15:05
PROVIDERS: ATTEND Orthopaedic Surgery
DX: M25.562 Pain in left knee (principal); M25.561 Pain in right knee; M22.41 Chondromalacia patellae, right knee; M22.42 Chondromalacia patellae, left knee

== ENCOUNTER 2020-09-06 01:27 | Emergency (ER) | payer OTHER ==
[~2020-09-06] VITALS: Ht 167.6 cm; Wt 156.5 kg
[2020-09-06] MEDS ORDERED: UBRO100T PO (01:35)
[2020-09-06 02:13] LABS: BASO # 0.1 10^3/uL (0.0-0.2); BASO % 0.4 % (0.0-1.0); EOS # 0.2 10^3/uL (0.0-0.5); EOS % 1.5 % (0.0-3.0); HEMATOCRIT 42.3 % (36.0-47.0); HEMOGLOBIN 13.7 g/dl (12.0-15.5); LYMPH # 3.7 10^3/uL (1.5-5.0); MEAN CORPUSCULAR HEMOGLOBIN 28.8 pg (27.0-33.0); MEAN CORPUSCULAR HGB CONC 32.4 g/dl (32.0-36.5); MEAN CORPUSCULAR VOLUME 89.1 fl (80.0-96.0); MONO # 0.7 10^3/uL (0.0-0.8); MONO % 5.1 % (2.0-8.0); NEUTROPHILS # 8.6 10^3/uL (1.5-8.5); NEUTROPHILS % 64.5 % (36.0-66.0); PLATELET COUNT, AUTOMATED 313 10^3/uL (150-450); RED BLOOD COUNT 4.75 10^6/uL (4.00-5.40); WHITE BLOOD COUNT 13.3 10^3/uL (4.0-10.0)
[2020-09-06 02:32] LABS: HCG, SERUM QUALITATIVE NEGATIVE (NEGATIVE)
[2020-09-06] MEDS ORDERED: KETOROLAC 30 MG/ML 1ML VIAL IV ONE (02:40)
[2020-09-06] MEDS ORDERED: ONDANSETRON 4MG/2ML VIAL IV ONE (02:50)
[2020-09-06 02:58] LABS: ALBUMIN 3.4 GM/DL (3.2-5.2); ALT/SGPT 21 U/L (12-78); BILIRUBIN,DIRECT < 0.1 MG/DL (0.0-0.2); BILIRUBIN,TOTAL 0.4 MG/DL (0.2-1.0); BLOOD UREA NITROGEN 18 MG/DL (7-18); CALCIUM LEVEL 9.1 MG/DL (8.5-10.1); CARBON DIOXIDE LEVEL 26 MEQ/L (21-32); CHLORIDE LEVEL 107 MEQ/L (98-107); CREATININE FOR GFR 0.69 MG/DL (0.55-1.30); GLOMERULAR FILTRATION RATE > 60.0 (>60); GLUCOSE, FASTING 102 MG/DL (70-100); LIPASE 227 U/L (73-393); SODIUM LEVEL 141 MEQ/L (136-145)
[2020-09-06] MEDS ORDERED: ISOVUE-370 76% 100ML VIAL As Ordered ONE (04:00)
--- NOTE | 2020-09-06 04:51 | REPVR ---
PROCEDURE INFORMATION: Exam: CT Abdomen And Pelvis With Contrast Exam date and time: 09/06/2020 3:28 AM Age: 35 years old Clinical indication: Abdominal pain; Localized; Right lower quadrant (rlq); Additional info: Rlq pain TECHNIQUE: Imaging protocol: Computed tomography of the abdomen and pelvis with contrast. Radiation optimization: All CT scans at this facility use at least one of these dose optimization techniques: automated exposure control; mA and/or kV adjustment per patient size (includes targeted exams where dose is matched to clinical indication); or iterative reconstruction. Contrast material: ISO; Contrast volume: 100 ml; Contrast route: INTRAVENOUS (IV); COMPARISON: CT ABD/PEL W/IV CONTRAST ONLY 06/08/2018 12:12 PM FINDINGS: Liver: Normal. No mass. Gallbladder and bile ducts: There has been prior cholecystectomy. No biliary duct dilation. Pancreas: Normal. No ductal dilation. Spleen: Normal. No splenomegaly. Adrenal glands: Normal. No mass. Kidneys and ureters: Normal. No hydronephrosis. Stomach and bowel: Unremarkable. No obstruction. No mucosal thickening. Appendix: No evidence of appendicitis. Intraperitoneal space: Unremarkable. No free air. No significant fluid collection. Vasculature: Unremarkable. No abdominal aortic aneurysm. Lymph nodes: Unremarkable. No enlarged lymph nodes. Urinary bladder: Unremarkable as visualized. Reproductive: 2 cm uterine fundal fibroid is unchanged. Uterus and adnexa are otherwise unremarkable Bones/joints: Unremarkable. No acute fracture. Soft tissues: Unremarkable. IMPRESSION: 1. No acute findings. 2. Stable small uterine fundal fibroid. Electronically signed by: Jus Portillo On 09/06/2020 04:51:50 AM
[2020-09-06] MEDS ORDERED: DICY10CA13 PO (05:08)
[2020-09-06] MEDS ORDERED: DICYCLOMINE INJ 20MG/2ML (J0500) IM ONE (05:10)
[2020-09-06 05:48] VITALS: BP 136/80
== END 2020-09-06 05:49 | disposition home or self-care (01) ==
LOC: M ED 01:27
DX: R10.9 Unspecified abdominal pain (principal); E66.9 Obesity, unspecified; R10.2 Pelvic and perineal pain; Z79.899 Other long term (current) drug therapy; Z88.0 Allergy status to penicillin; J30.81 Allergic rhinitis due to animal (cat) (dog) hair and dander; J30.2 Other seasonal allergic rhinitis
CPT/HCPCS: 36415; 74177; 80048; 80076; 81001; 83690; 84703; 85025; 96372; 96374; 96375; 99284; J0500; J1885; J2405; Q9967

== ENCOUNTER → 2020-09-12 | Outpatient (CLI) | payer OTHER ==
[~2020-09-12] MED LIST changes: +DICY10CA13 PO; +UBRO100T PO
== END ==
LOC: M LAB 08:44
PROVIDERS: ATTEND Physician Assistant
DX: M31.6 Other giant cell arteritis (principal)

== ENCOUNTER → 2020-09-15 | Outpatient (CLI) | payer OTHER ==
[~2020-09-15] MED LIST changes: +FIOR1CAP PO
== END ==
LOC: M PLARAD 12:24
PROVIDERS: ATTEND Physician Assistant
DX: H53.40 Unspecified visual field defects (principal); Z53.9 Procedure and treatment not carried out, unspecified reason

== ENCOUNTER 2020-09-16 20:06 | Emergency (ER) | payer OTHER ==
[~2020-09-16] VITALS: Ht 167.6 cm; Wt 176.0 kg
[~2020-09-16 20:06] MED LIST changes: -FIOR1CAP PO; +GABA-283 PO; -GABA-845 PO
[2020-09-16 20:07] VITALS: BP 134/89
[2020-09-16] MEDS ORDERED: diazePAM 10 MG TAB PO ONE (20:45)
[2020-09-16] MEDS ORDERED: diphenhydrAMINE 50MG/ML VIAL (J1200) IV STA (20:50)
[2020-09-16] MEDS ORDERED: NS 1,000 ML IV ONE (20:50)
[2020-09-16] MEDS ORDERED: METOCLOPRAMIDE INJ 10MG/2ML VIAL (J2765 PER 1) IV ONE (20:50)
[2020-09-16] MEDS ORDERED: KETOROLAC 30 MG/ML 1ML VIAL IV ONE (20:50)
[2020-09-16] MEDS ORDERED: diazePAM 10MG/2ML SYRINGE (J3360 PER 5MG) IV ONE (22:35)
--- NOTE | 2020-09-17 00:03 | REPVR ---
PROCEDURE INFORMATION: Exam: MRA Neck Without Contrast Exam date and time: 09/16/2020 11:27 PM Age: 35 years old Clinical indication: Visual disturbance; Transient visual loss; Patient HX: PT states HX of migraines and on 09/11 use of computer longer than normal. PT states she has had left eye pain and vision loss since then. ; Additional info: Left eye pain; Vision loss left eye TECHNIQUE: Imaging protocol: Magnetic resonance angiography of the neck without contrast. COMPARISON: 1. CT Spine,cervical w/o contrast 04/13/2015 4:13 PM 2. MRA BRAIN W/O CONTRAST 09/16/2020 10:47:59 PM FINDINGS: Right common carotid artery: No significant stenosis or occlusion of the distal right common carotid artery. Artifact limits evaluation of the remaining right common carotid artery, without occlusion. Right internal carotid artery: No stenosis of the proximal right internal carotid artery using NASCET criteria. Stenosis of the distal extracranial right internal carotid artery. When correlated with MRA imaging of the brain, this is less than 50%. Right external carotid artery: No significant stenosis. No occlusion. Right vertebral artery: Artifact limits evaluation of the V3, V4, and proximal V1 segments of the bilateral vertebral arteries. There is no occlusion of the vertebral arteries bilaterally. Stenoses cannot be excluded. Left common carotid artery: No significant stenosis or occlusion of the distal left common carotid artery. Artifact limits evaluation of the remaining left common carotid artery, without occlusion. Left internal carotid artery: For discussion of findings involving the petrous left internal carotid artery, refer to the MRA head report from the same day. No stenosis or occlusion of the extracranial left internal carotid artery. Left external carotid artery: No significant stenosis. No occlusion. Left vertebral artery: See above. IMPRESSION: 1. Less than 50% stenosis of the distal extracranial right internal carotid artery. 2. Artifact limits evaluation of the V3, V4, and proximal V1 segments of the bilateral vertebral arteries, without occlusion. Stenoses cannot be excluded. 3. Additional findings described above. REFERENCES: NASCET CRITERIA. The degree of internal carotid artery stenosis is based on NASCET criteria. Normal is no stenosis. Mild is less than 50% stenosis. Moderate is 50-69% stenosis. Severe is 70% to 99% stenosis. Total occlusion is no detectable patent lumen. Electronically signed by: Danial Hubbard On 09/17/2020 00:02:52 AM
--- NOTE | 2020-09-17 00:15 | REPVR ---
PROCEDURE INFORMATION: Exam: MRA Head Without Contrast; Arteriography Exam date and time: 09/16/2020 11:27 PM Age: 35 years old Clinical indication: Visual disturbance; Transient visual loss; Patient HX: PT states HX of migraines and on 09/11 use of computer longer than normal. PT states she has had left eye pain and vision loss since then. ; Additional info: Left eye pain; Vision loss left eye TECHNIQUE: Imaging protocol: Magnetic resonance angiography head without contrast. Exam focused on the arteries. COMPARISON: CT Head without contrast 07/19/2018 1:41 PM FINDINGS: ANTERIOR CIRCULATION: Right internal carotid artery: Less than 50% stenosis of the distal extracranial right internal carotid artery. No significant stenosis or occlusion of the intracranial right internal carotid artery. No aneurysm. Right middle cerebral artery: No occlusion or significant stenosis. No aneurysm. Right anterior cerebral artery: No occlusion or significant stenosis. No aneurysm. Left internal carotid artery: Mild increased signal intensity of the petrous left internal carotid artery, without significant stenosis or occlusion when correlated with source images. No significant stenosis or occlusion of the remaining left internal carotid artery. No aneurysm. Left middle cerebral artery: No occlusion or significant stenosis. No aneurysm. Left anterior cerebral artery: No occlusion or significant stenosis. No aneurysm. POSTERIOR CIRCULATION: Right vertebral artery: No occlusion or significant stenosis. No aneurysm. Left vertebral artery: No occlusion or significant stenosis. No aneurysm. Basilar artery: No occlusion or significant stenosis. No aneurysm. Right posterior cerebral artery: No occlusion or significant stenosis. No aneurysm. Left posterior cerebral artery: No occlusion or significant stenosis. No aneurysm. IMPRESSION: 1. Less than 50% stenosis of the distal extracranial right internal carotid artery. 2. Additional findings described above. Electronically signed by: Danial Hubbard On 09/17/2020 00:14:16 AM
--- NOTE | 2020-09-17 00:36 | REPVR ---
PROCEDURE INFORMATION: Exam: MR Orbit Without Contrast Exam date and time: 09/16/2020 11:27 PM Age: 35 years old Clinical indication: Visual changes or disturbances; Discomfort and transient loss of vision; Patient HX: PT states HX of migraines and on 09/11 use of computer longer than normal. PT states she has had left eye pain and vision loss since then. ; Additional info: Left eye pain with vision loss to lower field TECHNIQUE: Imaging protocol: MR Orbit was performed without intravenous contrast. COMPARISON: CT Maxilofacial w/out contrast 07/19/2018 1:41 PM FINDINGS: Orbital cavity: The optic globes demonstrate normal morphology. Motion artifact limits evaluation of the orbits. The conal muscles are normal in size. The lacrimal glands are unremarkable. Motion artifact limits evaluation of the optic nerves, although there is no mass effect associated with the optic nerves. There is no mass effect on the optic chiasm. No postseptal swelling within the orbits. Paranasal sinuses: Unremarkable, as visualized. No air-fluid levels. Brain: There are scattered foci of FLAIR hyperintensity within the cerebral white matter. There is no mass effect associated with these foci. This white matter disease is nonspecific as to etiology. Possible etiologies include chronic small vessel ischemic disease, foci of demyelination, post-traumatic change, and migraine headaches, as well as additional infectious, inflammatory and autoimmune etiologies. Evaluation of the brain is limited on this study. No cerebral edema. No intracranial mass effect visualized on axial T2 images. No evidence of sulcal prominence. Evaluation of the brain is limited by the absence of diffusion and FLAIR imaging. Cerebral ventricles: No ventriculomegaly. Mastoid air cells: Minimal mucosal thickening within a right mastoid air cell, with minimal effusion within a left mastoid air cell. This is likely of limited clinical significance. Vasculature: There is preservation of flow voids within the cavernous internal carotid arteries bilaterally. Bones/joints: Unremarkable, as visualized. Soft tissues: Within the right parietal scalp, there is a 7 mm nonspecific T2 hypointense focus. IMPRESSION: 1. No definitive acute intraorbital abnormality on this motion limited study. 2. There are scattered foci of FLAIR hyperintensity within the cerebral white matter. This white matter disease is nonspecific as to etiology, as detailed above. 3. Additional findings described above. Electronically signed by: Danial Hubbard On 09/17/2020 00:36:11 AM
[2020-09-17] MEDS ORDERED: MAGNESIUM SULFATE IV STA (00:58)
[2020-09-17] MEDS ORDERED: D5W IV STA (00:58)
[2020-09-17] MEDS ORDERED: ACETAMINOPHEN TAB 650MG DOSE (2X325MG) PO ONE (01:00)
[2020-09-17] MEDS ORDERED: dexameTHASONE 20MG/5ML VIAL (J1100 PER 1MG) IV ONE (01:00)
[2020-09-17] MEDS ORDERED: FIOR1CAP PO (02:08)
--- NOTE | 2020-09-18 08:13 | ED PDOC ---
Post-Departure Follow-Up mri orbits, face, neck; mra brain; mra carotids faxed to dr padgett. Certified le tter also sent to pt as these reports need to be faxed to pcp. if no pcp refer to [facility] and fax there Ila Diaz MD Sep 18, 2020 08:13
== END 2020-09-17 02:17 | disposition home or self-care (01) ==
LOC: M ED 20:06
DX: G43.909 Migraine, unspecified, not intractable, without status migrainosus (principal); H53.469 Homonymous bilateral field defects, unspecified side; I65.29 Occlusion and stenosis of unspecified carotid artery; F17.200 Nicotine dependence, unspecified, uncomplicated; R90.82 White matter disease, unspecified; J30.81 Allergic rhinitis due to animal (cat) (dog) hair and dander; J30.2 Other seasonal allergic rhinitis; Z88.0 Allergy status to penicillin
CPT/HCPCS: 70540; 70544; 70547; 96361; 96374; 96375; 99284; J1100; J1200; J1885; J2765; J3360

== ENCOUNTER → 2020-10-26 | Outpatient (CLI) | payer OTHER ==
[~2020-10-26] MED LIST changes: +FIOR1CAP PO
--- NOTE | 2020-10-26 21:19 | REPVR ---
PROCEDURE INFORMATION: Exam: MR Head Without Contrast Exam date and time: 10/26/2020 7:30 PM Age: 35 years old Clinical indication: Pain; Headache; Migraine; Without aura; Does respond to medication; Severity not specified; Additional info: Chronic migraine w/o aura, not intractable, w/o st TECHNIQUE: Imaging protocol: MR of the head without contrast. COMPARISON: MRA BRAIN W/O CONTRAST 09/16/2020 10:47 PM FINDINGS: Brain: There is a small number of scattered foci of predominantly subcortical and frontal lobe predominant white matter T2 hyperintensity. No acute intracranial hemorrhage. No acute ischemic infarction. No intracranial mass, mass effect or midline shift. Cerebral ventricles: No ventriculomegaly. Bones/joints: Unremarkable. Paranasal sinuses: Normal as visualized. Mastoid air cells: No mastoid effusion. Orbital cavity: Unremarkable. Soft tissues: Unremarkable. IMPRESSION: 1. No acute intracranial abnormality. 2. Small number of predominantly subcortical, frontal lobe white matter T2 hyperintense lesions are nonspecific although can be seen in the setting of chronic migraines. Electronically signed by: Tae Gongora On 10/26/2020 21:18:55 PM
== END ==
LOC: M RAD 17:37
PROVIDERS: ATTEND Psychiatry & Neurology Neurology
DX: G43.709 Chronic migraine without aura, not intractable, without status migrainosus (principal)

== ENCOUNTER 2021-03-04 08:37 | Emergency (ER) | payer OTHER ==
[~2021-03-04] VITALS: Ht 165.1 cm; Wt 153.5 kg
[2021-03-04 08:38] VITALS: BP 137/86
[2021-03-04] MEDS ORDERED: AIMO70IN2 (08:44)
[2021-03-05] MEDS ORDERED: DOXY1CAP62 PO (12:15)
== END 2021-03-04 10:40 | disposition left against medical advice (07) ==
LOC: M ED 08:37
DX: Z53.21 Procedure and treatment not carried out due to patient leaving prior to being seen by health care provider (principal)

== ENCOUNTER 2021-03-05 09:17 | Emergency (ER) | payer OTHER ==
[~2021-03-05] VITALS: Ht 175.3 cm; Wt 153.9 kg
[~2021-03-05 09:17] MED LIST changes: +AIMO70IN2
[2021-03-05] MEDS ORDERED: LIDOCAINE 2% MDV 20ML VIAL SC ONE (11:00)
[2021-03-05] MEDS ORDERED: DOXY1CAP62 PO (12:15)
[2021-03-05 12:46] VITALS: BP 137/76
== END 2021-03-05 12:47 | disposition home or self-care (01) ==
LOC: M ED 09:17
DX: L03.311 Cellulitis of abdominal wall (principal); L02.211 Cutaneous abscess of abdominal wall; R51.9 Headache, unspecified; G47.33 Obstructive sleep apnea (adult) (pediatric); F41.9 Anxiety disorder, unspecified; F32.9 Major depressive disorder, single episode, unspecified; F17.200 Nicotine dependence, unspecified, uncomplicated; J30.81 Allergic rhinitis due to animal (cat) (dog) hair and dander; J30.89 Other allergic rhinitis; Z79.899 Other long term (current) drug therapy; Z88.0 Allergy status to penicillin

== ENCOUNTER → 2021-12-14 | Outpatient (REF) | payer OTHER ==
[~2021-12-14] MED LIST changes: +DOXY-443 PO
[2021-12-14 13:14] LABS: CORTISOL AM 0.9 UG/DL (4.3-22.4); FOLLICLE STIMULATING HORMONE 8.4 mIU/mL; LUTEINIZING HORMONE 2.3 mIU/mL
== END ==
LOC: M LAB REF 11:47
PROVIDERS: ATTEND Internal Medicine
DX: E28.2 Polycystic ovarian syndrome (principal)

== ENCOUNTER → 2022-03-29 | Outpatient (REF) | payer OTHER | LOC: M SFHCWAGY 17:16 | PROVIDERS: ATTEND Obstetrics & Gynecology | DX: Z12.4 Encounter for screening for malignant neoplasm of cervix (principal) ==

== ENCOUNTER → 2022-04-10 | Outpatient (CLI) | payer OTHER | LOC: M WHC 14:15 | PROVIDERS: ATTEND Obstetrics & Gynecology | DX: N63.0 Unspecified lump in unspecified breast (principal) ==

== ENCOUNTER → 2022-07-09 | Outpatient (CLI) | payer OTHER | LOC: M PLAIMG 08:09 | PROVIDERS: ATTEND Surgery | DX: Z12.31 Encounter for screening mammogram for malignant neoplasm of breast (principal); Z91.89 Other specified personal risk factors, not elsewhere classified; Z80.3 Family history of malignant neoplasm of breast; Z53.8 Procedure and treatment not carried out for other reasons ==

== ENCOUNTER → 2022-10-28 | Outpatient (CLI) | payer OTHER | LOC: M SOG 09:41 | PROVIDERS: ATTEND Orthopaedic Surgery Hand Surgery | DX: M25.531 Pain in right wrist (principal); M25.532 Pain in left wrist; R93.6 Abnormal findings on diagnostic imaging of limbs ==

== ENCOUNTER → 2024-07-15 | Outpatient (CLI) | payer OTHER, SELFPAY ==
[~2024-07-15] MED LIST changes: +DICY-61 PO; -DICY10CA13 PO; +DOXY-441 PO; -DOXY-443 PO; +GABA-1172 PO; -GABA-282 PO; -GABA-283 PO; +GABA-284 PO
== END ==
LOC: M RAD 11:08
PROVIDERS: ATTEND Internal Medicine
DX: R05.9 Cough, unspecified (principal)

== ENCOUNTER → 2024-07-27 | Outpatient (CLI) | payer OTHER ==
[2024-07-27 14:23] LABS: BASO % 0.4 % (0.0-1.0); EOS # 0.1 10^3/uL (0.0-0.5); EOS % 1.5 % (0.0-3.0); HEMATOCRIT 42.2 % (36.0-47.0); HEMOGLOBIN 14.1 g/dl (12.0-15.5); LYMPH # 2.2 10^3/uL (1.5-5.0); LYMPH % 25.4 % (24.0-44.0); MEAN CORPUSCULAR HEMOGLOBIN 30.1 pg (27.0-33.0); MEAN CORPUSCULAR HGB CONC 33.4 g/dl (32.0-36.5); MEAN CORPUSCULAR VOLUME 90.2 fl (80.0-96.0); MONO # 0.6 10^3/uL (0.0-0.8); MONO % 6.6 % (2.0-8.0); NEUTROPHILS # 5.6 10^3/uL (1.5-8.5); NEUTROPHILS % 65.7 % (36.0-66.0); PLATELET COUNT, AUTOMATED 320 10^3/uL (150-450); RED BLOOD COUNT 4.68 10^6/uL (4.00-5.40); WHITE BLOOD COUNT 8.5 10^3/uL (4.0-10.0)
[2024-07-27 14:29] LABS: ERYTHROCYTE SEDIMENTATION RATE 35 mm/hr (0-20)
[2024-07-27 14:45] LABS: ALKALINE PHOSPHATASE 73 U/L (35-104); ALT/SGPT 37 U/L (7.0-40); AST/SGOT 26 U/L (<34); BILIRUBIN,TOTAL 0.8 MG/DL (0.3-1.2); BLOOD UREA NITROGEN 11 MG/DL (9-23); C REACTIVE PROTEIN QUANTITATIV < 0.50 MG/DL (<1.0); CALCIUM LEVEL 9.3 MG/DL (8.5-10.1); CARBON DIOXIDE LEVEL 30 MMOL/L (20-31); CHLORIDE LEVEL 102 MMOL/L (98-107); CREATININE FOR GFR 0.62 MG/DL (0.55-1.30); GLOMERULAR FILTRATION RATE > 60.0 (>60); GLUCOSE, FASTING 74 MG/DL (60-100); POTASSIUM SERUM 4.2 MMOL/L (3.5-5.1); SODIUM LEVEL 140 MMOL/L (136-145); TOTAL PROTEIN 7.7 G/DL (5.7-8.2)
[2024-07-27 14:47] LABS: FREE T4 1.16 NG/DL (0.89-1.76); RHEUMATOID FACTOR QUANT < 3.5 IU/ML (<14)
[2024-07-29 13:02] LABS: QuantiFERON-TB Gold Plus NEGATIVE (NEGATIVE)
[2024-07-29 15:56] LABS: ANGIOTENSIN 1 CONVERTING ENZYM 45 U/L (9-67)
[2024-07-29 19:48] LABS: RNP ANTIBODY <1.0 NEG AI (<1.0 NEG); SM ANTIBODY <1.0 NEG AI (<1.0 NEG); SSA SJOGRENS A <1.0 NEG AI (<1.0 NEG); SSB SJOGRENS B <1.0 NEG AI (<1.0 NEG)
[2024-07-30 09:07] LABS: IgG P18 AB REACTIVE; IgG P23 AB NON-REACTIVE; IgG P28 AB NON-REACTIVE; IgG P30 AB NON-REACTIVE; IgG P39 AB NON-REACTIVE; IgG P41 AB REACTIVE; IgG P45 AB NON-REACTIVE; IgG P58 AB NON-REACTIVE; IgG P66 AB NON-REACTIVE; IgG P93 AB NON-REACTIVE; IgM P23 AB NON-REACTIVE; IgM P39 AB NON-REACTIVE; IgM P41 AB NON-REACTIVE; LYME IgG WB INTERPRETATION NEGATIVE (NEGATIVE); LYME IgM WB INTERPRETATION NEGATIVE (NEGATIVE)
[2024-07-30 09:53] LABS: ANA SCREEN, IFA NEGATIVE (NEGATIVE)
== END ==
LOC: M LAB 11:41
PROVIDERS: ATTEND Ophthalmology
DX: Z13.0 Encounter for screening for diseases of the blood and blood-forming organs and certain disorders involving the immune mechanism (principal)

== ENCOUNTER → 2025-04-04 | Outpatient (REF) | payer BC, OTHER ==
[2025-04-06 16:27] LABS: HPV APTIMA Not Detected (Not Detected)
== END ==
LOC: M PLALAB 11:23
PROVIDERS: ATTEND Obstetrics & Gynecology
DX: Z12.4 Encounter for screening for malignant neoplasm of cervix (principal); R87.5 Abnormal microbiological findings in specimens from female genital organs
CPT/HCPCS: 87624; G0123

== ENCOUNTER → 2025-04-04 | Outpatient (CLI) | payer BC, OTHER ==
[2025-04-04 14:06] LABS: PLATELET COUNT, AUTOMATED 322 10^3/uL (150-450)
[2025-04-04 14:32] LABS: FREE T4 1.14 NG/DL (0.89-1.76)
== END ==
LOC: M PLALAB 11:15
PROVIDERS: ATTEND Obstetrics & Gynecology
DX: N93.9 Abnormal uterine and vaginal bleeding, unspecified (principal)

== ENCOUNTER 2025-05-06 06:28 | Day surgery (SDC) | payer BC ==
[~2025-05-06] VITALS: Ht 165.1 cm; Wt 149.6 kg
[~2025-05-06 06:28] MED LIST changes: +FREM225A; +TIRZ2.5P3 SQ
[2025-05-06] MEDS ORDERED: SUGAMMADEX SODIUM 500 MG/5 ML VIAL As Ordered ONE (06:54)
[2025-05-06] MEDS ORDERED: KETOROLAC 30 MG/ML 1 ML VIAL As Ordered ONE (06:54)
[2025-05-06] MEDS ORDERED: ROCURONIUM BROMIDE 50MG/5ML VIAL As Ordered ONE (06:54)
[2025-05-06] MEDS ORDERED: ONDANSETRON 4MG/2ML VIAL As Ordered ONE (06:54)
[2025-05-06] MEDS ORDERED: dexmedeTOMIDine (4 MCG/ML) 200 MCG/50 ML BTL As Ordered ONE (06:54)
[2025-05-06] MEDS ORDERED: dexAMETHasone 4 MG/ML 1 ML VIAL As Ordered ONE (06:54)
[2025-05-06] MEDS ORDERED: LIDOCAINE 2% 100 MG/5 ML SDV (FOR ANES.) As Ordered ONE (06:54)
[2025-05-06] MEDS ORDERED: MIDAZOLAM INJ 2 MG/2 ML VIAL As Ordered ONE (06:59)
[2025-05-06] MEDS: LR 1,000 ML IV SCH (07:00)
[2025-05-06] MEDS: metroNIDAZOLE 500 MG in IV 1 EA IV ONE (07:15)
[2025-05-06 07:19] LABS: PLATELET COUNT, AUTOMATED 275 10^3/uL (150-450)
[2025-05-06] MEDS: SCOPOLAMINE 1MG TRANSDERMAL PATCH As Ordered ONE (07:27)
[2025-05-06] MEDS: CIPROFLOXACIN 400 MG in IV 1 EA IV ONE (07:52)
[2025-05-06] MEDS ORDERED: ACETAMINOPHEN 1000MG/100ML IV BAG As Ordered ONE (08:06)
[2025-05-06] MEDS ORDERED: LR 1,000 ML IV SCH (09:25)
[2025-05-06] MEDS: HYDROMORPHONE HCL 0.5 MG/0.5 ML SYRINGE IV PRN ×2 (09:39→11:08)
[2025-05-06] MEDS: ONDANSETRON 4MG/2ML VIAL IV PRN (09:39)
[2025-05-06] MEDS: diphenhydrAMINE 50 MG/ML VIAL IV PRN (11:42)
[2025-05-06 12:18] VITALS: BP 125/80; TEMP 98.1; O2SAT 98
== END 2025-05-06 12:23 | disposition home or self-care (01) ==
LOC: M SDC 06:28
PROVIDERS: ATTEND Obstetrics & Gynecology
DX: N80.03 Adenomyosis of the uterus (principal); D25.1 Intramural leiomyoma of uterus; G43.909 Migraine, unspecified, not intractable, without status migrainosus; G47.30 Sleep apnea, unspecified; Z79.899 Other long term (current) drug therapy; F31.9 Bipolar disorder, unspecified; F32.A Depression, unspecified; F41.9 Anxiety disorder, unspecified; J30.2 Other seasonal allergic rhinitis; F17.200 Nicotine dependence, unspecified, uncomplicated; Z88.0 Allergy status to penicillin; D64.9 Anemia, unspecified
CPT/HCPCS: 36415; 58571; 81025; 85027; 86850; 86900; 86901; 88307; 93005; J0131; J0665; J0744; J1100; J1171; J1200; J1836; J1885; J2250; J2405; J2765; J3010; S2900